=== PATIENT | female | born 1995 | race Caucasian/White ===

== ENCOUNTER 2019-04-23 19:03 | Emergency (ER) | payer MEDICAID, OTHER ==
[~2019-04-23] VITALS: Ht 170.2 cm; Wt 131.5 kg
[2019-04-23 19:09] VITALS: BP 145/90
--- NOTE | 2019-04-23 19:11 | NUR ---
TO LOBBY A/W BED AMBULATORY
--- NOTE | 2019-04-23 20:01 | NUR ---
PT TAKEN TO BED 3
--- NOTE | 2019-04-23 20:12 | NUR ---
24 YO F BIB SELF PRESENTS TO ED WITH PERSISTENT, NAGGING PRODUCTIVE COUGH WITH YELLOW/GREEN SPUTUM CONSTANT X 3 MONTHS. DENIES FEVER, NVD. REPORTS PLEURITIC CHEST PRESSURE AND SORE THROAT WHILE COUGHING. HAS TRIED SEVERAL OTC COUGH MEDICATIONS WITH NO RELIEF. LUNGS CTA. SKIN PINK, WARM, DRY. BREATHING EVEN, UNLABORED. PMH-- DENIES RX-- DENIES
--- NOTE | 2019-04-23 20:41 | NUR ---
Dr. Petersen examining patient.
[2019-04-23 21:07] VITALS: BP 133/67
--- NOTE | 2019-04-23 21:07 | NUR ---
Patient discharged with v/s stable. Written and verbal after care instructions given and explained. Patient alert, oriented and verbalized understanding of instructions. Ambulatory with steady gait. All questions addressed prior to discharge. ID band removed. Patient advised to follow up with PMD and when to return to ER. Rx of Promethazine/Dextromethorphan and Prednisone given. Patient educated on indication of medication including possible reaction and side effects. Opportunity to ask questions provided and answered.
== END 2019-04-23 21:07 | disposition home or self-care (01) ==
LOC: MED 19:03
DX: R05 Cough (principal); R06.02 Shortness of breath
CPT/HCPCS: 71045; 99283

== ENCOUNTER 2022-09-16 12:38 | Emergency (ER) | payer OTHER ==
[~2022-09-16] VITALS: Ht 170.2 cm; Wt 144.2 kg
[2022-09-16 12:58] VITALS: BP 123/96
--- NOTE | 2022-09-16 13:02 | NUR ---
AMB. TO CHAIR Xiomara Ayers NO DIFF. \
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
[2022-09-16] MEDS ORDERED: KETOROLAC 30 MG/ML VIAL IM ONE (13:30)
--- NOTE | 2022-09-16 13:51 | NUR ---
report to naga vergara and lisa hernandze
--- NOTE | 2022-09-16 13:51 | NUR ---
ASSUMED CARE FROM YULIA. ALL QUESTIONS ANSWERED
[2022-09-16] MEDS ORDERED: KETOROLAC 30 MG/ML VIAL ONE (15:03)
[2022-09-16] MEDS ORDERED: IBUP-2213 PO (15:04)
[2022-09-16] MEDS ORDERED: CYCL-711 PO (15:04)
--- NOTE | 2022-09-16 15:55 | NUR ---
Patient discharged with v/s stable AT 1555. Written and verbal after care instructions given and explained. Patient alert, oriented and verbalized understanding of instructions. Ambulatory with steady gait. All questions addressed prior to discharge. ID band removed. Patient advised to follow up with PMD. Rx of FLEXERIL, IBUPROFEN given. Patient educated on indication of medication including possible reaction and side effects. Opportunity to ask questions provided and answered.
[2022-09-16 19:27] VITALS: BP 120/92
== END 2022-09-16 15:55 | disposition home or self-care (01) ==
LOC: MED 12:38
DX: S16.1XXA Strain of muscle, fascia and tendon at neck level, initial encounter (principal); Z79.899 Other long term (current) drug therapy; V49.49XA Driver injured in collision with other motor vehicles in traffic accident, initial encounter; Y93.89 Activity, other specified; Y92.89 Other specified places as the place of occurrence of the external cause; Y99.8 Other external cause status
CPT/HCPCS: 72040; 81025; 96372; 99283; J1885